=== PATIENT | female | born 1970 | race Two or more races ===

== ENCOUNTER 2020-12-30 11:29 | Emergency (ER) | payer OTHER ==
[~2020-12-30] VITALS: Ht 172.7 cm; Wt 88.5 kg
[2020-12-30] MEDS ORDERED: ALBUTEROL/IPRATROPIUM 2.5MG/0.5MG, 3 ML ONE ×2 (12:17→13:04)
--- NOTE | 2020-12-30 12:23 | NUR ---
pt in gown in [facility]. pt medicated per aug. pt instructed on use of nebulizer and duoneb is infusing at this time.
[2020-12-30] MEDS: ALBUTEROL/IPRATROPIUM 2.5MG/0.5MG, 3 ML NPPB SCH ×2 (12:24→13:06)
--- NOTE | 2020-12-30 13:06 | NUR ---
PT MEDICATED WITH SECOND BREATHING TREATMENT PER AUG.
[2020-12-30 13:29] VITALS: BP 136/71
--- NOTE | 2020-12-30 13:29 | NUR ---
PT VSS AND UPDATED IN EMR. PT REPORTS FEELING BETTER AFTER SECOND DUONEB TREATMENT. PT WITH D/C SUMMARY, SCRIPTS, AND WORK NOTE PRIOR TO PT D/C. PT DENIES ANY OTHER NEEDS PERTAINING TO THIS VISIT AND AMBULATES TO REGISTRATION DESK WITH STEADY GAIT FOR D/C HOME WITH SISTER.
== END 2020-12-30 13:43 | disposition home or self-care (01) ==
LOC: ED 13:35
DX: J45.901 Unspecified asthma with (acute) exacerbation (principal); Z87.891 Personal history of nicotine dependence; R94.31 Abnormal electrocardiogram [ECG] [EKG]
CPT/HCPCS: 71045; 93005; 94640; 99284; J7512